=== PATIENT | male | born 1970 | race Caucasian/White ===

== ENCOUNTER 2021-09-15 16:26 | Emergency (ER) | payer OTHER ==
[2021-09-15 17:23] LABS: RED BLOOD COUNT 5.27 M/UL (4.20-5.50); WHITE BLOOD COUNT 8.6 K/UL (4.5-11.0)
[2021-09-15 17:46] LABS: BUN/CREATININE RATIO 34 (0-10)
[2021-09-15] MEDS ORDERED: IBUPROFEN800 MG PO (22:45)
[2021-09-15] MEDS ORDERED: PROTONIX40 MG PO (22:46)
== END 2021-09-15 23:45 | disposition home or self-care (01) ==
LOC: ER1 16:26
PROVIDERS: Nurse Practitioner
DX: R09.1 Pleurisy (principal); R06.02 Shortness of breath; Z87.442 Personal history of urinary calculi; F17.290 Nicotine dependence, other tobacco product, uncomplicated; E11.9 Type 2 diabetes mellitus without complications; Z88.2 Allergy status to sulfonamides; Z88.5 Allergy status to narcotic agent
CPT/HCPCS: 71045; 80053; 82550; 82553; 83735; 83874; 83880; 84484; 85025; 93005; 96374; 96375; 99285; C9113; J1885; Q9967